=== PATIENT | female | born 1985 | race Two or more races ===

== ENCOUNTER 2024-11-01 15:11 | Outpatient (REF) | payer OTHER, SELFPAY ==
[2024-11-03 17:08] LABS: Age Gdln ACOG Testing Note (.); IGP, Aptima HPV, rfx 16/18,45 Note (.)
== END 2024-11-01 15:12 | disposition home or self-care (01) ==
LOC: LAB 15:11
PROVIDERS: Visit Provider Obstetrics & Gynecology
DX: Z01.419 Encounter for gynecological examination (general) (routine) without abnormal findings (principal)
CPT/HCPCS: 87624; 88175